=== PATIENT | male | born 1995 | race Caucasian/White ===

== ENCOUNTER 2018-05-03 23:58 | Emergency (ER) | payer MEDICAID ==
[~2018-05-03] VITALS: Ht 188 cm; Wt 113.6 kg
[2018-05-04 00:02] VITALS: Ht 188 cm; Wt 113.6 kg
[2018-05-04] MEDS ORDERED: TORADOL10 MG PO (01:14)
[2018-05-04 01:56] VITALS: BP 133/70
== END 2018-05-04 03:21 | disposition home or self-care (01) ==
LOC: D.ER 23:58
DX: M25.512 Pain in left shoulder (principal)